=== PATIENT | male | born 1955 | race Caucasian/White ===

== ENCOUNTER 2017-05-17 21:15 | Inpatient (IN) | payer SELFPAY ==
[2017-05-17 21:57] LABS: ADD MAN DIFF? NO
[2017-05-17 21:58] LABS: BASO # 0.1 x10^3/uL (0.0-0.2); BASO % 1 % (0-3); EOS # 0.1 x10^3/uL (0.0-0.7); EOS % 1 % (0-3); HEMATOCRIT 38.3 % (39.0-53.0); HEMOGLOBIN 12.8 g/dL (13.0-17.5); LYMPH # 1.7 x10^3/uL (1.0-4.8); LYMPH % 23 % (24-48); MEAN CORPUSCULAR HEMOGLOBIN 30 pg (25-35); MEAN CORPUSCULAR HGB CONC 34 g/dL (31-37); MEAN CORPUSCULAR VOLUME 88 fL (79-100); MONO # 0.6 x10^3/uL (0.0-1.1); MONO % 8 % (0-9); NEUT % 67 % (31-73); PLATELET COUNT 234 x10^3/uL (140-400); RED BLOOD COUNT 4.33 x10^6/uL (4.30-5.70); RED CELL DISTRIBUTION WIDTH 14.4 % (11.5-14.5); WHITE BLOOD COUNT 7.5 x10^3/uL (4.0-11.0)
[2017-05-17] MEDS: ONDANSETRON PF 4 MG/2 ML VIAL. IV (22:00)
[2017-05-17] MEDS: FAMOTIDINE 20 MG/2 ML VIAL IVP (22:00)
[2017-05-17] MEDS: IV NORMAL SALINE 1000ML BAG 1,000 ML IV ×2 (22:00)
[2017-05-17 22:07] LABS: ANION GAP 13 (6-14); BLOOD UREA NITROGEN 24 mg/dL (8-26); BUN/CREATININE RATIO 15 (6-20); CARBON DIOXIDE 26 mmol/L (21-32); CHLORIDE 102 mmol/L (98-107); CREATININE 1.6 mg/dL (0.7-1.3); GFR 44.3; GLUCOSE 102 mg/dL (70-99); POTASSIUM 4.2 mmol/L (3.5-5.1); SODIUM 141 mmol/L (136-145)
[2017-05-17 22:09] LABS: ETHANOL < 10 mg/dL (0-10)
[2017-05-17 22:11] LABS: INR 1.2 (0.8-1.1); PARTIAL THROMBOPLASTIN TIME 32 SEC (24-38); PROTHROMBIN TIME PATIENT 14.6 SEC (11.7-14.0)
[2017-05-17 22:13] LABS: ALBUMIN 4.1 g/dL (3.4-5.0); ALBUMIN/GLOBULIN RATIO 0.9 (1.0-1.7); ALK PHOS 129 U/L (46-116); ALT (SGPT) 49 U/L (16-63); AST (SGOT) 54 U/L (15-37); TOTAL BILIRUBIN 0.5 mg/dL (0.2-1.0); TOTAL PROTEIN 8.5 g/dL (6.4-8.2)
[2017-05-17 22:28] LABS: BILIRUBIN,URINE SMALL (NEG); CLARITY,URINE CLEAR; GLUCOSE,URINE NEGATIVE (NEG); NITRITE,URINE NEGATIVE (NEG); PH,URINE 5.5; PROTEIN,URINE NEGATIVE (NEG-TRACE); UROBILINOGEN,URINE 0.2 mg/dL (0.2 mg/dL)
[2017-05-17 22:33] LABS: AMPHETAMINE/METHAMPHETAMINE POS (NEG); BARBITURATES NEG (NEG); BENZODIAZEPINES POS (NEG); CANNABINOIDS NEG (NEG); COCAINE NEG (NEG); COLOR,URINE DK YELLOW; ETHANOL, URINE NEG (NEG); METHADONE POS (NEG); OPIATES NEG (NEG); PHENCYCLIDINE NEG (NEG)
[2017-05-17 22:36] LABS: BACTERIA,URINE 0 /HPF (0-FEW); RBC,URINE RARE /HPF (0-2); WBC,URINE 0 /HPF (0-4)
[2017-05-17 22:37] LABS: HYALINE CASTS, URINE MANY /HPF
[2017-05-17] MEDS ORDERED: ONDANSETRON PF 4 MG/2 ML VIAL. IV (23:30)
[2017-05-18] MEDS: IV NORMAL SALINE 1000ML BAG 1,000 ML IV ×2 (04:46→14:43)
[2017-05-18] MEDS: ACETAMINOPHEN 325 MG TABLET. PO (04:47)
[2017-05-18 05:06] LABS: ADD MAN DIFF? NO
[2017-05-18 05:15] LABS: BASO # 0.1 x10^3/uL (0.0-0.2); BASO % 1 % (0-3); EOS # 0.3 x10^3/uL (0.0-0.7); EOS % 4 % (0-3); HEMATOCRIT 36.5 % (39.0-53.0); HEMOGLOBIN 12.1 g/dL (13.0-17.5); LYMPH # 2.5 x10^3/uL (1.0-4.8); LYMPH % 35 % (24-48); MEAN CORPUSCULAR HEMOGLOBIN 30 pg (25-35); MEAN CORPUSCULAR HGB CONC 33 g/dL (31-37); MEAN CORPUSCULAR VOLUME 89 fL (79-100); MONO # 0.7 x10^3/uL (0.0-1.1); MONO % 10 % (0-9); NEUT # 3.5 x10^3uL (1.8-7.7); NEUT % 49 % (31-73); PLATELET COUNT 192 x10^3/uL (140-400); RED BLOOD COUNT 4.08 x10^6/uL (4.30-5.70); RED CELL DISTRIBUTION WIDTH 14.8 % (11.5-14.5); WHITE BLOOD COUNT 7.2 x10^3/uL (4.0-11.0)
[2017-05-18 05:25] LABS: ANION GAP 9 (6-14); BLOOD UREA NITROGEN 22 mg/dL (8-26); CALCIUM 9.8 mg/dL (8.5-10.1); CARBON DIOXIDE 27 mmol/L (21-32); CHLORIDE 106 mmol/L (98-107); CREATININE 1.2 mg/dL (0.7-1.3); GFR 61.8; GLUCOSE 121 mg/dL (70-99); SODIUM 142 mmol/L (136-145)
[2017-05-18] MEDS: MORPHINE SULFATE 4 MG/ML DISP.SYRIN. IV (09:09)
[2017-05-18 11:38] LABS: THYROID STIM HORMONE (TSH) 4.116 uIU/mL (0.358-3.74)
[2017-05-18] MEDS: DULoxetine HCL 20 MG CAPSULE.DR PO ×2 (12:29→20:10)
[2017-05-18] MEDS: METHADONE (DAILY MAINT DOSE) 100 MG/100 ML SOLUTION PO (14:38)
[2017-05-19 06:49] LABS: ADD MAN DIFF? NO
[2017-05-19 06:52] LABS: BASO % 1 % (0-3); EOS # 0.2 x10^3/uL (0.0-0.7); EOS % 4 % (0-3); HEMATOCRIT 36.9 % (39.0-53.0); LYMPH # 1.6 x10^3/uL (1.0-4.8); LYMPH % 32 % (24-48); MEAN CORPUSCULAR HEMOGLOBIN 29 pg (25-35); MEAN CORPUSCULAR HGB CONC 32 g/dL (31-37); MEAN CORPUSCULAR VOLUME 90 fL (79-100); MONO # 0.4 x10^3/uL (0.0-1.1); MONO % 8 % (0-9); NEUT # 2.8 x10^3uL (1.8-7.7); NEUT % 55 % (31-73); PLATELET COUNT 166 x10^3/uL (140-400); RED CELL DISTRIBUTION WIDTH 14.8 % (11.5-14.5)
[2017-05-19 07:25] LABS: ANION GAP 10 (6-14); BLOOD UREA NITROGEN 15 mg/dL (8-26); CALCIUM 8.4 mg/dL (8.5-10.1); CARBON DIOXIDE 26 mmol/L (21-32); CHLORIDE 109 mmol/L (98-107); CREATININE 0.9 mg/dL (0.7-1.3); GFR 86.1; GLUCOSE 79 mg/dL (70-99); POTASSIUM 4.6 mmol/L (3.5-5.1); SODIUM 145 mmol/L (136-145)
[2017-05-19] MEDS: DULoxetine HCL 20 MG CAPSULE.DR PO ×2 (11:19→20:50)
[2017-05-19] MEDS: METHADONE (DAILY MAINT DOSE) 100 MG/100 ML SOLUTION PO (11:19)
[2017-05-20 07:17] LABS: ADD MAN DIFF? NO
[2017-05-20 07:21] LABS: BASO % 1 % (0-3); EOS # 0.1 x10^3/uL (0.0-0.7); EOS % 1 % (0-3); HEMATOCRIT 39.9 % (39.0-53.0); HEMOGLOBIN 13.2 g/dL (13.0-17.5); LYMPH # 1.2 x10^3/uL (1.0-4.8); LYMPH % 21 % (24-48); MEAN CORPUSCULAR HEMOGLOBIN 29 pg (25-35); MEAN CORPUSCULAR HGB CONC 33 g/dL (31-37); MEAN CORPUSCULAR VOLUME 89 fL (79-100); MONO # 0.4 x10^3/uL (0.0-1.1); MONO % 7 % (0-9); NEUT # 4.2 x10^3uL (1.8-7.7); NEUT % 71 % (31-73); PLATELET COUNT 195 x10^3/uL (140-400); RED BLOOD COUNT 4.48 x10^6/uL (4.30-5.70); RED CELL DISTRIBUTION WIDTH 14.1 % (11.5-14.5); WHITE BLOOD COUNT 5.9 x10^3/uL (4.0-11.0)
[2017-05-20 07:33] LABS: ANION GAP 9 (6-14); BLOOD UREA NITROGEN 14 mg/dL (8-26); CALCIUM 9.5 mg/dL (8.5-10.1); CARBON DIOXIDE 29 mmol/L (21-32); CHLORIDE 105 mmol/L (98-107); GFR 76.2; GLUCOSE 90 mg/dL (70-99); POTASSIUM 4.6 mmol/L (3.5-5.1); SODIUM 143 mmol/L (136-145)
[2017-05-20] MEDS: DULoxetine HCL 20 MG CAPSULE.DR PO (09:40)
[2017-05-20] MEDS: METHADONE (DAILY MAINT DOSE) 100 MG/100 ML SOLUTION PO (09:40)
== END 2017-05-20 16:30 | disposition home or self-care (01) | DRG 83 ==
LOC: ER 21:15 → 4 NORTH 22:59
DX: S06.9X9A Unspecified intracranial injury with loss of consciousness of unspecified duration, initial encounter (principal); F11.20 Opioid dependence, uncomplicated; F07.81 Postconcussional syndrome; W10.8XXA Fall (on) (from) other stairs and steps, initial encounter; F17.210 Nicotine dependence, cigarettes, uncomplicated; F32.9 Major depressive disorder, single episode, unspecified; F41.9 Anxiety disorder, unspecified; G89.4 Chronic pain syndrome; I10 Essential (primary) hypertension; R41.3 Other amnesia; M19.90 Unspecified osteoarthritis, unspecified site; F19.10 Other psychoactive substance abuse, uncomplicated; Z83.3 Family history of diabetes mellitus; Z87.820 Personal history of traumatic brain injury; Z88.0 Allergy status to penicillin; Y93.89 Activity, other specified; Y92.098 Other place in other non-institutional residence as the place of occurrence of the external cause; Y99.8 Other external cause status; Z71.51 Drug abuse counseling and surveillance of drug abuser; Z71.6 Tobacco abuse counseling
CPT/HCPCS: 36415; 70450; 70551; 71045; 72125; 80048; 80053; 80307; 81001; 84443; 85025; 85610; 85730; 92523-GN; 93005; 93306; 95816; 97116-GP; 97162-GP; 97165-GO; 99285; 99285-25; G0480; J2270; J7030

== ENCOUNTER 2017-07-24 10:33 | Emergency (ER) | payer SELFPAY ==
[2017-07-24] MEDS: IV NORMAL SALINE 1000ML BAG 1,000 ML IV ×3 (10:35→13:35)
[2017-07-24 11:17] LABS: ADD MAN DIFF? NO
[2017-07-24 11:20] LABS: BASO # 0.1 x10^3/uL (0.0-0.2); BASO % 1 % (0-3); EOS # 0.1 x10^3/uL (0.0-0.7); EOS % 2 % (0-3); HEMATOCRIT 33.8 % (39.0-53.0); HEMOGLOBIN 11.1 g/dL (13.0-17.5); LYMPH # 1.8 x10^3/uL (1.0-4.8); LYMPH % 36 % (24-48); MEAN CORPUSCULAR HEMOGLOBIN 29 pg (25-35); MEAN CORPUSCULAR HGB CONC 33 g/dL (31-37); MEAN CORPUSCULAR VOLUME 88 fL (79-100); MONO # 0.4 x10^3/uL (0.0-1.1); MONO % 9 % (0-9); NEUT # 2.6 x10^3uL (1.8-7.7); NEUT % 52 % (31-73); PLATELET COUNT 163 x10^3/uL (140-400); RED BLOOD COUNT 3.86 x10^6/uL (4.30-5.70); RED CELL DISTRIBUTION WIDTH 15.3 % (11.5-14.5); WHITE BLOOD COUNT 4.9 x10^3/uL (4.0-11.0)
[2017-07-24 11:32] LABS: ANION GAP 9 (6-14); BLOOD UREA NITROGEN 9 mg/dL (8-26); BUN/CREATININE RATIO 8 (6-20); CALCIUM 8.6 mg/dL (8.5-10.1); CARBON DIOXIDE 26 mmol/L (21-32); CHLORIDE 105 mmol/L (98-107); CREATININE 1.2 mg/dL (0.7-1.3); GFR 61.8; GLUCOSE 85 mg/dL (70-99); POTASSIUM 4.1 mmol/L (3.5-5.1); SODIUM 140 mmol/L (136-145)
[2017-07-24 11:38] LABS: ALBUMIN 3.4 g/dL (3.4-5.0); ALK PHOS 99 U/L (46-116); ALT (SGPT) 32 U/L (16-63); AST (SGOT) 39 U/L (15-37); CREATINE KINASE 240 U/L (39-308); TOTAL BILIRUBIN 0.4 mg/dL (0.2-1.0); TOTAL PROTEIN 6.8 g/dL (6.4-8.2)
[2017-07-24 11:38] LABS: ETHANOL < 10 mg/dL (0-10)
[2017-07-24 11:40] LABS: LACTIC ACID 1.2 mmol/L (0.4-2.0); TROPONINI < 0.017 ng/mL (0.000-0.055)
[2017-07-24] MEDS ORDERED: CONTRAST GIVEN MC (12:15)
[2017-07-24] MEDS: IOHEXOL 300 MG/ML 100ML VIAL. IV (12:17)
[2017-07-24 13:16] LABS: BILIRUBIN,URINE NEGATIVE (NEG); CLARITY,URINE CLEAR; COLOR,URINE YELLOW; GLUCOSE,URINE NEGATIVE (NEG); NITRITE,URINE NEGATIVE (NEG); PROTEIN,URINE NEGATIVE (NEG-TRACE); UROBILINOGEN,URINE 0.2 mg/dL (0.2 mg/dL)
[2017-07-24 13:24] LABS: BARBITURATES NEG (NEG); BENZODIAZEPINES POS (NEG); CANNABINOIDS NEG (NEG); COCAINE NEG (NEG); METHADONE POS (NEG); OPIATES NEG (NEG); PHENCYCLIDINE NEG (NEG)
[2017-07-24 13:25] LABS: AMPHETAMINE/METHAMPHETAMINE POS (NEG); ETHANOL, URINE NEG (NEG)
[2017-07-24 13:26] LABS: BACTERIA,URINE 0 /HPF (0-FEW); HYALINE CASTS, URINE FEW /HPF; RBC,URINE 0 /HPF (0-2); WBC,URINE 0 /HPF (0-4)
[2017-07-24] MEDS ORDERED: ONDANSETRON PF 4 MG/2 ML VIAL. IV (13:45)
[2017-07-24] MEDS ORDERED: ACETAMINOPHEN 325 MG TABLET. PO (13:45)
[2017-07-24] MEDS ORDERED: ASPIRIN CHEWABLE 81 MG TABLET. PO (14:00)
[2017-07-24 14:42] LABS: TROPONINI < 0.017 ng/mL (0.000-0.055)
== END 2017-07-24 15:15 | disposition home or self-care (01) ==
LOC: ER 10:33
DX: T67.5XXA Heat exhaustion, unspecified, initial encounter (principal); R55 Syncope and collapse; F12.10 Cannabis abuse, uncomplicated; Z90.89 Acquired absence of other organs; X58.XXXA Exposure to other specified factors, initial encounter; Y93.9 Activity, unspecified; Y99.8 Other external cause status; Y92.89 Other specified places as the place of occurrence of the external cause
CPT/HCPCS: 36415; 70450; 71045; 71275; 80053; 80307; 81001; 82550; 83605; 84484; 85025; 93005; 99285; G0480; J7030; Q9967

== ENCOUNTER 2021-07-05 14:05 | Emergency (ER) | payer OTHER ==
[~2021-07-05] VITALS: Ht 177.8 cm; Wt 74.8 kg
[~2021-07-05 14:05] MED LIST: METH-572 PO
[2021-07-05] MEDS ORDERED: HYDROcodone/APAP 5/325MG 1 TAB TABLET PO ONE (15:15)
--- NOTE | 2021-07-05 15:35 | PHYS DOC ---
Past Medical History Past Medical History: Hypertension Additional Past Medical Histor: POOR HISTORIAN Past Surgical History: Tonsillectomy, Other Additional Past Surgical Histo: HERNIA Smoking Status: Current Every Day Smoker Alcohol Use: None Drug Use: Marijuana General Adult EDM: Chief Complaint: MECHANICAL FALL HPI: HPI: Patient is a 66 year old male with history of hypertension presenting to the ED today complaining of moderate pain to the right elbow and right forearm, symptoms began a week ago after he tripped on uneven surface on the floor and fell. Denies any loss of consciousness. Denies hitting his head on the ground. Denies any back pain, mid or low back pain. Denies being on any blood thinners. He states he could not come to the hospital right away because he has no transportation. States the pain is worse on extension of the right elbow, denies anything specifically relieving the pain. Review of Systems: Review of Systems: Constitutional: Denies fever or chills. [] GI: Denies abdominal pain, nausea, vomiting, bloody stools or diarrhea. [] : Denies dysuria. [] Musculoskeletal: Reports right elbow and right forearm pain Integument: Denies rash. [] Neurologic: Denies headache, focal weakness or sensory changes. [] Psychiatric: Denies depression or anxiety. [] Heart Score: C/O Chest Pain: N/A Risk Factors: Risk Factors: DM, Current or recent (<one month) smoker, HTN, HLP, family history of CAD, obesity. Risk Scores: Score 0 - 3: 2.5% MACE over next 6 weeks - Discharge Home Score 4 - 6: 20.3% MACE over next 6 weeks - Admit for Clinical Observation Score 7 - 10: 72.7% MACE over next 6 weeks - Early Invasive Strategies Current Medications: Current Medications Medications (Trade) Dose Ordered Sig/Greg Start Time Stop Time Status Last Admin Dose Admin Acetaminophen/ Hydrocodone Bitart (Lortab 5/325) 1 tab 1X ONCE 07/05/21 15:15 07/05/21 15:16 DC 07/05/21 15:18 1 TAB Allergies: Allergies: Allergies Coded Allergies Type Severity Reaction Last Updated Verified Penicillins Allergy Intermediate RASH 05/17/17 Yes Physical Exam: PE: Constitutional: Well developed, well nourished, no acute distress, non-toxic appearance. [] Neck: Normal range of motion, no tenderness, supple, no stridor. [] Skin: Warm, dry, no erythema, no rash. [] Back: No tenderness, no CVA tenderness. [] Extremities: Right forearm with moderate bruising, mild soft tissue swelling noted on the right elbow and right forearm, tenderness on palpation of the right elbow especially posterior aspect of the elbow. Slightly limited extension of the right elbow mostly due to pain. Limited plantarflexion of the right forearm. Adequate dorsiflexion of the right forearm. Full range of motion to the right fingers, adequate radial, medial, ulnar sensation to the right fingers. +2 right radial pulse. Cap refill less than 2 seconds to right fingers Neurologic: Alert and oriented X 3, normal motor function, normal sensory function, no focal deficits noted. [] Psychologic: Affect normal, judgement normal, mood normal. [] Current Patient Data: Vital Signs: Vital Signs Date Time Temp Pulse Resp B/P (MAP) Pulse Ox O2 Delivery O2 Flow Rate FiO2 07/05/21 15:18 18 98 Room Air 07/05/21 14:20 97.2 97 155/105 (122) 97.2 EKG: EKG: [] Radiology/Procedures: Radiology/Procedures: []PROCEDURE: FOREARM RIGHT Study: 1. XR FOREARM_RIGHT 2 VIEWS 2. XR ELBOW COMPLETE_RIGHT 3+ VIEWS Indication: Fall. Pain. Comparison: None. Findings: Right elbow: Acute fracture of the lateral humeral epicondyle with the fracture cleft propagating towards the midline and potentially extending to the medial epicondyle. Cortical offset on the AP view by up to 5 mm better appreciated on the forearm series. No evidence by radiography for fracture extension into the radiocapitellar or ulnotrochlear articulations. Chronic irregularity of the radial head. Articular surface flattening with subchondral lucency of the capitellum. Elbow joint effusion and regional soft tissue edema. Right forearm: Intact radial and ulnar shafts. Chronic bony irregularity at the far distal radius and ulna. Grossly intact carpal bones. Osteopenia. Impression: Right elbow and right forearm: 1. Acute fracture of the lateral humeral epicondyle which may propagate into the medial epicondyle. Cortical offset laterally by up to 5 mm. Associated elbow joint effusion and/or any soft tissue edema. 2. Moderate arthrosis at the elbow with articular surface flattening and subchondral lucency of the capitellum. 3. No acute fracture identified throughout the forearm or wrist. Electronically signed by: DANIELLE MARIA MD (07/05/2021 3:34 PM) [facility] DICTATED and SIGNED BY: DANIELLE MARIA MD DATE: 07/05/21 1526 Course & Med Decision Making: Course & Med Decision Making Pertinent Labs and Imaging studies reviewed. (See chart for details) This is a 66-year-old male patient presenting to the ED today with right forearm and right elbow pain that began after falling a week ago. Right forearm x-rays are negative for any acute findings, right elbow x-rays acute fracture of the lateral humeral epicondyle which may propagate into the medial epicondyle. Cortical offset laterally by up to 5 mm. Associated elbow joint effusion and/or any soft tissue edema. Consulted with Dr. Sarina Stephens, he recommended with splint patient and he can follow-up in the clinic. Patient was placed in a long posterior arm splint by the ED RN, neurovascular exam done by me post splinting is normal. Ice elevatio n encouraged. Provided patient orthopedic doctor contact information for follow-up Marta Disclaimer: Marta Disclaimer: This electronic medical record was generated, in whole or in part, using a voice recognition dictation system. Departure Departure Impression: Primary Impression: Fall Qualified Codes: W19.XXXA - Unspecified fall, initial encounter Additional Impressions: Contusion of forearm, right Qualified Codes: S50.11XA - Contusion of right forearm, initial encounter Elbow fracture, right Qualified Codes: S42.401A - Unspecified fracture of lower end of right humerus, initial encounter for closed fracture Disposition: 01 HOME / SELF CARE / HOMELESS Condition: STABLE Referrals: NO PCP (PCP) BONG MCDONOUGH Jr. DO call the Orthopedic doctor tomorrow and set up a folllow up appointment Patient Instructions: Fall Prevention and Home Safety Additional Instructions: You were evaluated in the emergency room and noted to have right elbow fracture please contact the provided orthopedic doctor tomorrow morning and set up a follow-up appointment. Try to ice and elevate the extremity. Scripts Hydrocodone Bit/Acetaminophen (HYDROCODONE-APAP 5-325 ) 1 Tab Tablet 1 TAB PO PRN Q6HRS PRN for PAIN, #14 TAB 0 Refills Prov: MARISELA WATTS CORRESPONDENCE DICTATOR 07/05/21 MARISELA WATTS APRN July 05, 2021 15:35
--- NOTE | 2021-07-05 15:37 | RAD ---
Study: 1. XR FOREARM_RIGHT 2 VIEWS 2. XR ELBOW COMPLETE_RIGHT 3+ VIEWS Indication: Fall. Pain. Comparison: None. Findings: Right elbow: Acute fracture of the lateral humeral epicondyle with the fracture cleft propagating towards the midl ine and potentially extending to the medial epicondyle. Cortical offset on the AP view by up to 5 mm better appreciated on the forearm series. No evidence by radiography for fracture extension into the radiocapitellar or ulnotrochlear articulations. Chronic irregularity of the radial head. Articular anne rface flattening with subchondral lucency of the capitellum. Elbow joint effusion and regional soft t issue edema. Right forearm: Intact radial and ulnar shafts. Chronic bony irregularity at the far distal radius and ulna. Grossly intact carpal bones. Osteopenia. Impression: Right elbow and right forearm: 1. Acute fracture of the lateral humeral epicondyle which may propagate into the medial epicondyle. C ortical offset laterally by up to 5 mm. Associated elbow joint effusion and/or any soft tissue edema. 2. Moderate arthrosis at the elbow with articular surface flattening and subchondral lucency of the c apitellum. 3. No acute fracture identified throughout the forearm or wrist. Electronically signed by: DANIELLE MARIA MD (07/05/2021 3:34 PM) [facility]
[2021-07-05 17:05] VITALS: BP 148/92
[2021-07-05] MEDS ORDERED: HYDR-2761 PO (17:15)
== END 2021-07-05 17:20 | disposition home or self-care (01) ==
LOC: ER 14:05
DX: S42.401A Unspecified fracture of lower end of right humerus, initial encounter for closed fracture (principal); S50.11XA Contusion of right forearm, initial encounter; I10 Essential (primary) hypertension; F17.200 Nicotine dependence, unspecified, uncomplicated; W01.0XXA Fall on same level from slipping, tripping and stumbling without subsequent striking against object, initial encounter; Y93.89 Activity, other specified; Y92.89 Other specified places as the place of occurrence of the external cause; Y99.8 Other external cause status
CPT/HCPCS: 29105; 73080; 73090; 99284